=== PATIENT | female | born 1970 | race Caucasian/White ===

== ENCOUNTER 2018-07-28 11:06 | Emergency (ER) | payer MEDICAID ==
[~2018-07-28] VITALS: Ht 165.1 cm; Wt 79.0 kg
[2018-07-28] MEDS ORDERED: KETOROLAC 60MG/2ML VIAL IM ONE (11:45)
[2018-07-28] MEDS ORDERED: TRAMADOL 50MG TABLET PO ONE (15:15)
[2018-07-28] MEDS ORDERED: KETOROLAC 30MG/ML VIAL IV ONE (16:00)
[2018-07-28 17:27] VITALS: BP 116/74
== END 2018-07-28 17:46 | disposition home or self-care (01) ==
LOC: ER 11:06
DX: S09.8XXA Other specified injuries of head, initial encounter (principal); S16.1XXA Strain of muscle, fascia and tendon at neck level, initial encounter; S39.012A Strain of muscle, fascia and tendon of lower back, initial encounter; S29.012A Strain of muscle and tendon of back wall of thorax, initial encounter; M25.552 Pain in left hip; M25.551 Pain in right hip; W01.0XXA Fall on same level from slipping, tripping and stumbling without subsequent striking against object, initial encounter; Y93.89 Activity, other specified; Y92.89 Other specified places as the place of occurrence of the external cause; Y99.8 Other external cause status
CPT/HCPCS: 70450; 72070; 72100; 72125; 73521; 81025; 96372; 96374; 99284; J1885